=== PATIENT | male | born 1930 | race Caucasian/White ===

== ENCOUNTER 2017-12-14 15:50 | Inpatient (IN) | payer MEDICARE ==
[2017-12-14 16:55] LABS: Urine Appearance Clear; Urine Blood Negative (Negative); Urine Color Yellow; Urine Ketones Trace (Negative); Urine Protein Negative (Negative); Urine Specific Gravity 1.016 (1.010-1.030); Urine Urobilinogen Negative (Negative)
[2017-12-14 16:59] LABS: ABS Basophils 0.1 10^3/ul (0-0.2); ABS Eosinophils 0 10^3/ul (0-0.6); ABS Lymphocytes 1.5 10^3/ul (1.0-4.8); ABS Monocytes 0.9 10^3/ul (0-0.8); ABS Neutrophils 7.1 10^3/ul (1.5-7.7); ABS Nucleated RBC 0 10^3/ul; Eosinophil % 0.2 % (0-6); Hematocrit 48 % (42-52); Hemoglobin 16.4 g/dl (14.0-18.0); Lymphocyte % 15.5 % (25-47); Mean Corpuscular HGB Conc 34 g/dl (31-36); Mean Corpuscular Hemoglobin 29 pg (27-31); Mean Corpuscular Volume 86 fL (80-94); Mean Platelet Volume 7.8 um3 (7.4-10.4); Nucleated Red Blood Cells % 0.1; Platelet Count 175 10^3/ul (150-450); Red Blood Count 5.65 10^6/ul (4.00-5.40); Red Cell Distribution Width 15 % (10.5-15); White Blood Count 9.5 10^3/ul (3.5-10.8)
[2017-12-14 17:24] LABS: EGFR Non-African American 56.9 (>60)
--- NOTE | 2017-12-14 20:28 | ED ---
Psychiatric Complaint - HPI Summary HPI Summary: This is scribe Soham Yo documenting for attending Kim Lao MD. A 87 y/o male presents to ED c/o SI. As per triage, "Patient has SI, without HI. Stated that he wanted swallow pills, or jump out of the window". According to the patient, 29 years ago his and he suffered from depression and he checked himself into [facility] because he wanted help, and he was admitted for a few weeks. He noted that it was the bravest thing he has ever done. He stated that his MD, Dr. Pro, discovered a 2 x 2 x 3 mass in his neck. A biopsy was done which revealed that it is nothing he should worry about because it is not cancerous, but it did create worry for him. About 1 week ago, he started to experience depression again. He noted that is son is a half a block away and knows he is here. His ex lives in the same building as him. Patient did emphasize that he does have SI, but not a real plan. He stated he has several pills he could take, but he wouldn't do anything for his son's sake. He decided to come to ED on his own. He stated that he confessed what he was feeling this morning at [facility] at confession with a client resource specialist. Current medications include Paxil which he takes only occasionally and baby Aspirin, however, he is not sure about all medications. Pharmacy is [place] [facility] [address] He stated that he has not taken his Paxil for a long time, instead he takes it occassionally. FHx of no suicide or depression. Dr. Lao called [facility] on [address] in [place] and spoke with pharmacist, who stated that pt's only med filled is levothyroxine 50mcg daily which was filled in September 2017. Pt had prior prescriptions for paroxetine 20mg, 30mg po qd, last filled 11/02/16. Pt was also on glipizide ER 10mg qd, losartan/HCTZ 100/25 qd, and oxybutinin 5mg, all of which were last filled in February 2017. I, Dr. Kim Lao, personally performed the services described in this documentation as scribed in my presence and it is both accurate and complete. - History Of Current Complaint Chief Complaint: EDMentalHealth Time Seen by Provider: 12/14/17 16:22 Hx Obtained From: Patient, Other: - [facility] pharmacy Onset/Duration: Sudden Onset, Lasting Weeks, Still Present Timing: Constant Severity Initially: Moderate Severity Currently: Severe Character: Depressed Aggravating Factor(s): Nothing Alleviating Factor(s): Nothing Related History: Positive For: Prior Psychiatric Issues Has Suicidal: Reports: Thoughts. Denies: With A Plan Has Homicidal: Denies: Thoughts - Risk Factor(s) Completed Suicide Risk Factors: Male, White Fijian, , Living Alone - Allergies/Home Medications Allergies/Adverse Reactions: Allergies Allergy/AdvReac Type Severity Reaction Status Date / Time No Known Allergies Allergy Verified 09/17/17 12:43 PMH/Surg Hx/FS Hx/Imm Hx Previously Healthy: No - BPH Endocrine/Hematology History: Reports: Hx Diabetes, Hx Thyroid Disease Cardiovascular History: Reports: Hx Hypertension Respiratory History: Denies: Hx Asthma, Hx Chronic Obstructive Pulmonary Disease (COPD) GI History: Denies: Hx Ulcer History: Denies: Hx Dialysis, Hx Renal Disease Psychiatric History: Reports: Hx Depression Denies: Hx Eating Disorder, Hx of Violent Episodes Against Others - Cancer History Cancer Type, Location and Year: none - Surgical History Surgery Procedure, Year, and Place: left ankle,left knee,hernia,cspine laminectomy, Infectious Disease History: No Infectious Disease History: Denies: Hx Hepatitis, Hx Human Immunodeficiency Virus (HIV), Hx of Known/ Suspected MRSA, Hx Shingles, Hx Tuberculosis, Traveled Outside the [place] in Last 30 Days - Family History Known Family History: Positive: Other - NEGATIVE: Depression and SI - Social History Occupation: Retired Lives: Alone Alcohol Use: Occasionally Substance Use Type: Reports: None Smoking Status (MU): Never Smoked Tobacco Review of Systems Negative: Fever Cardiovascular: Negative Respiratory: Negative Gastrointestinal: Negative Positive: no symptoms reported Skin: Negative Neurological: Negative Psychological: Other - POSITIVE: SI All Other Systems Reviewed And Are Negative: Yes Physical Exam - Summary Physical Exam Summary: Appearance: Well-appearing, no pain distress, well-nourished Skin:Warm, color reflects adequate perfusion, dry Head:Normal Head/Face inspection, atraumatic Eyes: Conjunctiva clear ENT:Normal inspection Neck:Supple, no nodes, no JVD Respiratory: Lungs clear, normal breath sounds, no respiratory distress Cardio: irregular HR, controlled rate, No murmur, pulses normal, brisk capillary refill Abdomen: Soft, nontender Bowel sounds: Present Musculoskeletal: Strength Intact/ROM intact, no calf tenderness, no edema. Psychological: Depressed affect Neuro: Alert, muscle tone normal, no focal deficit Triage Information Reviewed: Yes Vital Signs On Initial Exam: Initial Vitals Temp Pulse Resp BP Pulse Ox 98.6 F 95 18 130/90 96 12/14/17 15:52 12/14/17 15:52 12/14/17 15:52 12/14/17 15:52 12/14/17 15:52 Vital Signs Reviewed: Yes Diagnostics - Vital Signs Vital Signs Temp Pulse Resp BP Pulse Ox 12/14/17 15:52 98.6 F 95 18 130/90 96 - Laboratory Lab Results: Lab Results 12/14/17 12/14/17 12/14/17 Range/Units 16:41 16:41 16:50 WBC 9.5 (3.5-10.8) 10^3/ul RBC 5.65 H (4.00-5.40) 10^6/ul Hgb 16.4 (14.0-18.0) g/dl Hct 48 (42-52) % MCV 86 (80-94) fL MCH 29 (27-31) pg MCHC 34 (31-36) g/dl RDW 15 (10.5-15) % Plt Count 175 (150-450) 10^3/ul MPV 7.8 (7.4-10.4) um3 Neut % (Auto) 74.3 (38-83) % Lymph % (Auto) 15.5 L (25-47) % Archer % (Auto) 9.3 H (0-7) % Eos % (Auto) 0.2 (0-6) % Baso % (Auto) 0.7 (0-2) % Absolute Neuts (auto) 7.1 (1.5-7.7) 10^3/ul Absolute Lymphs (auto) 1.5 (1.0-4.8) 10^3/ul Absolute Monos (auto) 0.9 H (0-0.8) 10^3/ul Absolute Eos (auto) 0 (0-0.6) 10^3/ul Absolute Basos (auto) 0.1 (0-0.2) 10^3/ul Absolute Nucleated RBC 0 10^3/ul Nucleated RBC % 0.1 Sodium (135-145) mmol/L Potassium (3.5-5.0) mmol/L Chloride (101-111) mmol/L Carbon Dioxide (22-32) mmol/L Anion Gap (2-11) mmol/L BUN (6-24) mg/dL Creatinine (0.67-1.17) mg/dL Est GFR ( Amer) (>60) Est GFR (Non-Af Amer) (>60) BUN/Creatinine Ratio (8-20) Glucose (70-100) mg/dL Calcium (8.6-10.3) mg/dL Total Bilirubin (0.2-1.0) mg/dL AST (13-39) U/L ALT (7-52) U/L Alkaline Phosphatase (34-104) U/L Total Protein (6.4-8.9) g/dL Albumin (3.2-5.2) g/dL Globulin (2-4) g/dL Albumin/Globulin Ratio (1-3) TSH (0.34-5.60) mcIU/mL Urine Color Yellow Urine Appearance Clear Urine pH 5.0 (5-9) Ur Specific Cody 1.016 (1.010-1.030) Urine Protein Negative (Negative) Urine Ketones Trace A (Negative) Urine Blood Negative (Negative) Urine Nitrate Negative (Negative) Urine Bilirubin Negative (Negative) Urine Urobilinogen Negative (Negative) Ur Leukocyte Esterase Negative (Negative) Urine Glucose Negative (Negative) Urine Ascorbic Acid * A (Negative) Salicylates (<30) mg/dL Urine Opiates Screen None detected (None Detect) Acetaminophen mcg/mL Ur Barbiturates Screen None detected (None Detect) Ur Phencyclidine Scrn None detected (None Detect) Ur Amphetamines Screen None detected (None Detect) U Benzodiazepines Scrn None detected (None Detect) Urine Cocaine Screen None detected (None Detect) U Cannabinoids Screen None detected (None Detect) Serum Alcohol (<10) mg/dL 12/14/17 Range/Units 16:50 WBC (3.5-10.8) 10^3/ul RBC (4.00-5.40) 10^6/ul Hgb (14.0-18.0) g/dl Hct (42-52) % MCV (80-94) fL MCH (27-31) pg MCHC (31-36) g/dl RDW (10.5-15) % Plt Count (150-450) 10^3/ul MPV (7.4-10.4) um3 Neut % (Auto) (38-83) % Lymph % (Auto) (25-47) % Archer % (Auto) (0-7) % Eos % (Auto) (0-6) % Baso % (Auto) (0-2) % Absolute Neuts (auto) (1.5-7.7) 10^3/ul Absolute Lymphs (auto) (1.0-4.8) 10^3/ul Absolute Monos (auto) (0-0.8) 10^3/ul Absolute Eos (auto) (0-0.6) 10^3/ul Absolute Basos (auto) (0-0.2) 10^3/ul Absolute Nucleated RBC 10^3/ul Nucleated RBC % Sodium 138 (135-145) mmol/L Potassium 3.9 (3.5-5.0) mmol/L Chloride 105 (101-111) mmol/L Carbon Dioxide 25 (22-32) mmol/L Anion Gap 8 (2-11) mmol/L BUN 21 (6-24) mg/dL Creatinine 1.21 H (0.67-1.17) mg/dL Est GFR ( Amer) 68.8 (>60) Est GFR (Non-Af Amer) 56.9 (>60) BUN/Creatinine Ratio 17.4 (8-20) Glucose 135 H (70-100) mg/dL Calcium 9.2 (8.6-10.3) mg/dL Total Bilirubin 0.80 (0.2-1.0) mg/dL AST 15 (13-39) U/L ALT 16 (7-52) U/L Alkaline Phosphatase 87 (34-104) U/L Total Protein 6.6 (6.4-8.9) g/dL Albumin 3.7 (3.2-5.2) g/dL Globulin 2.9 (2-4) g/dL Albumin/Globulin Ratio 1.3 (1-3) TSH 0.87 (0.34-5.60) mcIU/mL Urine Color Urine Appearance Urine pH (5-9) Ur Specific Cody (1.010-1.030) Urine Protein (Negative) Urine Ketones (Negative) Urine Blood (Negative) Urine Nitrate (Negative) Urine Bilirubin (Negative) Urine Urobilinogen (Negative) Ur Leukocyte Esterase (Negative) Urine Glucose (Negative) Urine Ascorbic Acid (Negative) Salicylates < 2.50 (<30) mg/dL Urine Opiates Screen (None Detect) Acetaminophen < 15 mcg/mL Ur Barbiturates Screen (None Detect) Ur Phencyclidine Scrn (None Detect) Ur Amphetamines Screen (None Detect) U Benzodiazepines Scrn (None Detect) Urine Cocaine Screen (None Detect) U Cannabinoids Screen (None Detect) Serum Alcohol < 10 (<10) mg/dL Result Diagrams: 12/14/17 16:50 12/14/17 16:50 Lab Statement: Any lab studies that have been ordered have been reviewed, and results considered in the medical decision making process. - EKG 1635 Cardiac Rate: NL - 90 BPM EKG Rhythm: Atrial Fibrillation ST Segment: Non-Specific Ectopy: PVCs - 2 PVC's EKG Interpretation: nl IV CT, nl QTc, axis 19, no acute changes EKG Comparison: Other - No prior EKG to compare. Course/Dx - Course Course Of Treatment: A 87 y/o male presents to ED c/o SI. An EKG revealed NSR of 90 BPM, atrial fibrillation, nl IV CT, nl QTc, axis 19, no acute changes and positive ectopy with 2 PVC's. No prior EKG's to compare. Pt is asymptomatic with this. [facility], [place] , [address]. Pt has been noncompliant with medications for DM, HTN and depression. It is believed that pt's depression and suicidal ideation with vague plan to take pills, although he does consider that he wouldn't do it because of his son, is more dangerous to the patient at this time than his atrial fibrillation that may be new because pt is totally asymptomatic and his rate is controlled, and pt would not be admitted to the hospital for his afib alone, so pt is medically cleared at 17:35pm. Pt care was discussed with Dr. Ibanez who advised that medical consult for stable, controlled rate, asymptomatic atrial fibrillation could take place in the am, 12/15/17. In the ED course, the patient recieved no medications. Patient medications were reviewed this visit, takes only levothyroxine 50 mcg daily and occasional paroxetine, last filled 11/02/16. Patient care was discussed with love Wilkins, RN, who advises patient admission, 9.39 status (emergency admit). Patient will be admitted with a diagnosis of A-fib and depression. Patient is agreeable with this plan. - Differential Dx/Clinical Impression Differential Diagnosis/HQI/PQRI: Positive: Depression, Suicidal Ideation, Other - atrial fibrillation Provider Diagnosis: Depression, Atrial fibrillation - Physician Notifications Discussed Care Of Patient With: Vikas Valenzuela Time Discussed With Above Provider: 21:36 Instructed by Provider To: Admit As Inpatient - Accepts for admission, per Kendra AGUILAR. Patient Is Medically Stable For: Psych Evaluation Discharge - Sign-Out/Discharge Documenting (check all that apply): Patient Departure - ADMIT - Discharge Plan Condition: Stable Disposition: PSYCHIATRIC FACILITY-[facility] – [place] Referrals: Serafin Shen MD [Primary Care Provider] - - Billing Disposition and Condition Condition: STABLE Disposition: Psychiatric Facility [facility] [place]
[2017-12-14] MEDS ORDERED: Al Hydrox/Mg Hydrox/Simet LIQ* 30 ML UDC PO PRN (23:40)
--- NOTE | 2017-12-15 00:09 | CONSULT ---
Consult Consult: Consulted by ED MD for AFIB on ECG. Upon review of the ECG autoread claims AFIB , the ECG is actually NSR rate 90 with occasional PVCs, no ischemia. Chart review reveals no HX AFIB. As such, I will sign off. Patient not seen or evaluated. Please re-consult for any concerns.
[2017-12-15] MEDS: Levothyroxine TAB* 50 MCG TAB PO SCH (09:20)
[2017-12-15] MEDS: Vitamin THERAPEUTIC TAB PO SCH (09:20)
[2017-12-15] MEDS ORDERED: Mirtazapine TAB* 15 MG PO PRN (15:38)
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
[2017-12-15] MEDS: Mirtazapine TAB* 15 MG PO SCH (20:28)
[2017-12-16] MEDS: Vitamin THERAPEUTIC TAB PO SCH (09:34)
[2017-12-16] MEDS: Levothyroxine TAB* 50 MCG TAB PO SCH (09:34)
[2017-12-16] MEDS: Acetaminophen TAB* 325 MG PO PRN (10:30)
--- NOTE | 2017-12-16 12:48 | PN ---
Subjective - Subjective Date of Service: 12/16/17 Service Type: 28715 Hosp care 15 min low complexity Subjective: Patient was seen by self, discussed with treatment team, chart was reviewed. Patient has been compliant with his medications, no reported side effects. Patient reports continued feeling of depression and low energy, passive suicidal thoughts. Patient reported having headache and stiff neck this morning from a particular posture during sleep. Patient reported having that in the past as well and requested for pain medication. Patient sleeping has been disturbed last night. Patient eating has been ok. Patient was Patient continues to struggle with his memory of recent event and could not recall information from out meeting yesterday. Patient is cooperative with staff. Patient behavior has been in control. Patient mood was anxious and dysphoric with racing thoughts. Patient has passive suicidal ideation but no homicidal ideation. No psychotic symptoms of delusions or hallucinations. Objective - Appearance Appearance: Healthy Appearing Dysmorphic Features: No Hygiene: Normal Grooming: Disheveled - Behavior Psychomotor Activities: Abnormal-Decreased - Attitude and Relatedness Attitude and Relatedness: Cooperative Eye Contact: Fair - Speech Quality: Unpressured Latencies: Normal Quantity: Terse - Mood Patient's Decription of Mood: "i dont want to feel like this" - Affect Observed Affect: Depressed Affect Consistent with: Dysphoria - Thought Process Patient's Thought Process: Goal Directed Thought Content: Yes Passive Wish - but feel safe at the hospital, will report staff if any worsening of sucidial thougths, No Suicidal Planning, No Homicidal Ideation, No Paranoid Ideation - Sensorium Experiencing Hallucinations: No, Sensorium is Clear Type of Hallucinations: Visual: No, Auditory: No, Command: No - Level of Consciousness Level of Consciousness: Alert Orientation: Yes Intact, Yes Orientated to Time, Yes Orientated to Place, Yes Orientated to Person - Impulse Control Impulse Control: Intact - Insight and Judgement Insight and Judgement: Fair - Medication Management Medication Management Adherence: Yes Assessment - Assessment Merits Inpatient Hospitalization: For Immediate Safety, For Stabilization, For Discharge Planning Inpatient DSM-V Dx: F33.9 Clinical Impression: Patient with history of majore depression and suicidal thoughts. Patient currently admitted due to worsening of depression, non compliance, not caring for self and suicidal thoughts with plan to overdose. Patient has also been struggling with his memory and also apprehensive about lesion around sternal area that was biopsied. Patient is a danger to self if discharged hence medications are being adjusted and symptoms will be stabilized on inpatient. Plan - Plan Treatment Plan: Name: JANELLE SARABIA Birthdate: 1930 [id number] - Patient continues to be hospitalized due to depression recent suicidal thoughts with plan, not caring for himself and anxiety. - Patient's medications were continued after informed consent with Remeron 7.5 mg for depression and sleep. - Patient will be continued with levothyroxine, will follow up with hospitalist tomorrow with another set of vital. Continue with finger stick daily. - Patient will be monitored for improvement and side effects. Risk and benefits were discussed. - Patient was encouraged to continue his participation in the milieu, group and individual therapy. Medications: Current Medications Acetaminophen (Tylenol Tab*) 650 mg PO Q4H PRN PRN Reason: PAIN or TEMP > 101 F Last Admin: 12/16/17 10:30 Dose: 650 mg Al Hydrox/Mg Hydrox/Simethicone (Maalox Plus*) 30 ml PO Q4H PRN PRN Reason: INDIGESTION Levothyroxine Sodium (Synthroid Tab*) 50 mcg PO 0600 DOMINIC Last Admin: 12/16/17 09:34 Dose: 50 mcg Mirtazapine (Remeron Tab*) 7.5 mg PO BEDTIME DOMINIC Last Admin: 12/15/17 20:28 Dose: 7.5 mg Multivitamins (Theragran Tab*) 1 tab PO DAILY DOMINIC Last Admin: 12/16/17 09:34 Dose: 1 tab
[2017-12-16] MEDS: Folic Acid TAB* 1 MG PO SCH (14:08)
--- NOTE | 2017-12-16 16:22 | PN ---
[facility]: Group Therapy Note - Service Type Service Type: [id number] Group Psychotherapy - Medication Education Group: Patient was attentive and participatory in group, and remained in good behavioral control. Patient expressed positive insights regarding relevant treatment interventions. Patient stated understanding of material discussed and had appropriate questions.
[2017-12-16] MEDS: Mirtazapine TAB* 15 MG PO SCH (20:21)
[2017-12-17] MEDS: Vitamin THERAPEUTIC TAB PO SCH (10:08)
[2017-12-17] MEDS: Folic Acid TAB* 1 MG PO SCH (10:08)
[2017-12-17] MEDS: Levothyroxine TAB* 50 MCG TAB PO SCH (10:08)
[2017-12-17] MEDS: Acetaminophen TAB* 325 MG PO PRN (10:08)
--- NOTE | 2017-12-17 14:35 | PN ---
Subjective - Subjective Date of Service: 12/17/17 Service Type: 38709 Hosp care 15 min low complexity Subjective: Patient was seen by self, discussed with treatment team, chart was reviewed. Patient has been compliant with his medications, reports some pressure in stomach but no nausea and vomiting. Patient was in pain with headached during the monring but as the day progress was better. Patient reports continued feeling of depression and low energy, passive suicidal thoughts. Patient reported having headache which gets better later during the day. Patient reported that it get resolved with tylenol and requested for one this morning. Patient sleeping has been better last night. Patient eating has been ok. Patient continues to struggle with his memory and concentration difficulty. Patient is cooperative with staff. Patient behavior has been in control. Patient mood was anxious and dysphoric with racing thoughts. Patient has passive suicidal ideation but no homicidal ideation. No psychotic symptoms of delusions or hallucinations. Objective - Appearance Appearance: Healthy Appearing Dysmorphic Features: No Grooming: Disheveled - Behavior Psychomotor Activities: Abnormal-Decreased Exhibits Abnormal Movement: No - Attitude and Relatedness Attitude and Relatedness: Cooperative Eye Contact: Fair - Speech Quality: Unpressured Latencies: Normal Quantity: Terse - Mood Patient's Decription of Mood: "Terrible" - Affect Observed Affect: Depressed Affect Consistent with: Dysphoria - Thought Process Patient's Thought Process: Goal Directed Thought Content: Yes Passive Wish, No Suicidal Planning, No Homicidal Ideation, No Paranoid Ideation - Sensorium Experiencing Hallucinations: No, Sensorium is Clear Type of Hallucinations: Visual: No, Auditory: No, Command: No - Level of Consciousness Level of Consciousness: Alert Orientation: Yes Intact, Yes Orientated to Time, Yes Orientated to Place, Yes Orientated to Person - Impulse Control Impulse Control: Intact - Insight and Judgement Insight and Judgement: Fair - Group Participation Particating in Group Activities: Yes Assessment - Assessment Merits Inpatient Hospitalization: For Immediate Safety, For Stabilization, For Discharge Planning Inpatient DSM-V Dx: F33.9 Clinical Impression: Patient with history of majore depression and suicidal thoughts. Patient currently admitted due to worsening of depression, non compliance, not caring for self and suicidal thoughts with plan to overdose. Patient has also been struggling with his memory and also apprehensive about lesion around sternal area that was biopsied. Patient is a danger to self if discharged hence medications are being adjusted and symptoms will be stabilized on inpatient. Plan - Plan Treatment Plan: Name: JANELLE SARABIA Birthdate: 1930 [id number] - Patient continues to be hospitalized due to depression recent suicidal thoughts with plan, not caring for himself and anxiety. - Patient's medications were continued after informed consent with Remeron 7.5 mg for depression and sleep. Will continue with Q15 minutes. - Patient will be continued with levothyroxine, will follow up with vital signs , as B.P has been in 130's. Continue with finger stick daily. - Patient will be monitored for improvement and side effects. Risk and benefits were discussed. - Patient was encouraged to continue his participation in the milieu, group and individual therapy. Medications: Current Medications Acetaminophen (Tylenol Tab*) 650 mg PO Q4H PRN PRN Reason: PAIN or TEMP > 101 F Last Admin: 12/17/17 10:08 Dose: 650 mg Al Hydrox/Mg Hydrox/Simethicone (Maalox Plus*) 30 ml PO Q4H PRN PRN Reason: INDIGESTION Folic Acid (Folvite Tab*) 1 mg PO DAILY [facility] Last Admin: 12/17/17 10:08 Dose: 1 mg Levothyroxine Sodium (Synthroid Tab*) 50 mcg PO 0600 [facility] Last Admin: 12/17/17 10:08 Dose: 50 mcg Mirtazapine (Remeron Tab*) 7.5 mg PO BEDTIME [facility] Last Admin: 12/16/17 20:21 Dose: 7.5 mg Multivitamins (Theragran Tab*) 1 tab PO DAILY [facility] Last Admin: 12/17/17 10:08 Dose: 1 tab
[2017-12-17] MEDS: Mirtazapine TAB* 15 MG PO SCH (20:29)
[2017-12-18] MEDS: Acetaminophen TAB* 325 MG PO PRN (09:21)
[2017-12-18] MEDS: Folic Acid TAB* 1 MG PO SCH (09:21)
[2017-12-18] MEDS: Levothyroxine TAB* 50 MCG TAB PO SCH (09:21)
[2017-12-18] MEDS: Vitamin THERAPEUTIC TAB PO SCH (09:21)
--- NOTE | 2017-12-18 20:00 | PN ---
Subjective - Subjective Date of Service: 12/18/17 Service Type: 36694 Hosp care 15 min low complexity Subjective: Mr. Erickson appeared to be happily interacting with nursing staff and reported that he had a better day today with good mood and no physical issues. Unsure about suicidal thoughts as that comes and goes. Takes his meds as prescribed, wonders around on the unit and responds to staffs pleasantly. Objective - Appearance Appearance: Healthy Appearing Dysmorphic Features: No Hygiene: Normal Grooming: Well Kept - Behavior Psychomotor Activities: Normal Exhibits Abnormal Movement: No - Attitude and Relatedness Attitude and Relatedness: Appropriate Eye Contact: Good - Speech Quality: Unpressured Latencies: Normal Quantity: Appropriate - Mood Patient's Decription of Mood: "Fine" - Affect Observed Affect: Non-labile Affect Consistent with: Euthymia - Thought Process Patient's Thought Process: Coherent, Circumstantial Thought Content: No Passive Wish, No Suicidal Planning, No Homicidal Ideation, No Paranoid Ideation - Sensorium Experiencing Hallucinations: No, Sensorium is Clear Type of Hallucinations: Visual: No, Auditory: No, Command: No - Level of Consciousness Level of Consciousness: Alert Orientation: Yes Orientated to Place, Yes Orientated to Person, No Orientated to Time - Impulse Control Impulse Control: Intact - Insight and Judgement Insight and Judgement: Poor - Group Participation Particating in Group Activities: Yes - Medication Management Medication Management Adherence: Yes Assessment - Assessment Merits Inpatient Hospitalization: For Immediate Safety, For Stabilization, Pending Safe DC Plan Inpatient DSM-V Dx: F33.9 Clinical Impression: Unreliable in reporting but pleasant and cooperative. Plan - Plan Treatment Plan: Name: JANELLE ERICKSON Birthdate: 1930 [id number] Continued Medication Management: Continue Outpt Medication Medications: Current Medications Acetaminophen (Tylenol Tab*) 650 mg PO Q4H PRN PRN Reason: PAIN or TEMP > 101 F Last Admin: 12/18/17 09:21 Dose: 650 mg Al Hydrox/Mg Hydrox/Simethicone (Maalox Plus*) 30 ml PO Q4H PRN PRN Reason: INDIGESTION Folic Acid (Folvite Tab*) 1 mg PO DAILY [facility] Last Admin: 12/18/17 09:21 Dose: 1 mg Levothyroxine Sodium (Synthroid Tab*) 50 mcg PO 0600 [facility] Last Admin: 12/18/17 09:21 Dose: 50 mcg Mirtazapine (Remeron Tab*) 7.5 mg PO BEDTIME [facility] Last Admin: 12/17/17 20:29 Dose: 7.5 mg Multivitamins (Theragran Tab*) 1 tab PO DAILY [facility] Last Admin: 12/18/17 09:21 Dose: 1 tab - Discharge Plan Discharge Plan: Outpatient Follow Up Outpatient Program: [facility]
[2017-12-18] MEDS: Mirtazapine TAB* 15 MG PO SCH (20:15)
[2017-12-19] MEDS: Acetaminophen TAB* 325 MG PO PRN (08:39)
[2017-12-19] MEDS: Levothyroxine TAB* 50 MCG TAB PO SCH (08:40)
[2017-12-19] MEDS: Vitamin THERAPEUTIC TAB PO SCH (08:40)
[2017-12-19] MEDS: Folic Acid TAB* 1 MG PO SCH (08:40)
[2017-12-19] MEDS: Mirtazapine TAB* 15 MG PO SCH (20:41)
[2017-12-20] MEDS: Folic Acid TAB* 1 MG PO SCH (07:38)
[2017-12-20] MEDS: Levothyroxine TAB* 50 MCG TAB PO SCH (07:38)
[2017-12-20] MEDS: Vitamin THERAPEUTIC TAB PO SCH (07:38)
--- NOTE | 2017-12-20 11:31 | PN ---
Subjective - Subjective Date of Service: 12/20/17 Service Type: [id number] Hosp care 15 min low complexity Subjective: Patient was seen by self, discussed with treatment team, chart was reviewed. Patient has been compliant with his medications, reports improvement in pressure in stomach and loose bowel movements, no nausea and vomiting. Patient did not report any headache today and was seen in his room. Patient reports continued feelings of depression with minimal improvement, reduction in frequency and intensity of passive suicidal thoughts. Patient sleeping has been better last night. Patient eating has been ok. Patient continues to struggle with his memory and concentration difficulty. Patient is cooperative with staff. Patient behavior has been in control. Patient mood was less anxious and dysphoric with less racing thoughts. Patient has no homicidal ideation. No psychotic symptoms of delusions or hallucinations. Objective - Appearance Appearance: Healthy Appearing Dysmorphic Features: No Hygiene: Mal-odorous Grooming: Fairly Well Kept - Behavior Psychomotor Activities: Abnormal-Decreased Exhibits Abnormal Movement: No - Attitude and Relatedness Attitude and Relatedness: Superficially Cooperative Eye Contact: Fair - Speech Quality: Unpressured Latencies: Normal Quantity: Terse - Mood Patient's Decription of Mood: "not good" - Affect Observed Affect: Depressed Affect Consistent with: Dysphoria - Thought Process Patient's Thought Process: Goal Directed Thought Content: No Passive Wish - not at the time of evaluation, No Suicidal Planning, No Homicidal Ideation, No Paranoid Ideation - Sensorium Experiencing Hallucinations: No, Sensorium is Clear Type of Hallucinations: Visual: No, Auditory: No, Command: No - Level of Consciousness Level of Consciousness: Alert Orientation: Yes Intact, Yes Orientated to Time, Yes Orientated to Place, Yes Orientated to Person - Impulse Control Impulse Control: Intact - Insight and Judgement Insight and Judgement: Poor - as per recent non compliance but improving - Medication Management Medication Management Adherence: Yes Assessment - Assessment Merits Inpatient Hospitalization: For Immediate Safety, For Stabilization, For Discharge Planning Inpatient DSM-V Dx: F33.9 Clinical Impression: Patient with history of majore depression and suicidal thoughts. Patient currently admitted due to worsening of depression, non compliance, not caring for self and suicidal thoughts with plan to overdose. Patient has also been struggling with his memory and also apprehensive about lesion around sternal area that was biopsied. Patient is a danger to self if discharged hence medications are being adjusted and symptoms will be stabilized on inpatient. Plan - Plan Treatment Plan: Name: JANELLE SARABIA Birthdate: 1930 [id number] - Patient continues to be hospitalized due to depression recent suicidal thoughts with plan, not caring for himself and anxiety. - Patient's medications were continued after informed consent with Remeron 7.5 mg for depression and sleep. Patient currently tolerating it better and improving with GI side effects. Will continue with Q15 minutes. - Patient will be continued with levothyroxine, patient's B.P has been in 130' s. Continue with finger stick daily. - Patient will be monitored for improvement and side effects. Risk and benefits were discussed. - Patient was encouraged to continue his participation in the milieu, group and individual therapy. Medications: Current Medications Acetaminophen (Tylenol Tab*) 650 mg PO Q4H PRN PRN Reason: PAIN or TEMP > 101 F Last Admin: 12/19/17 08:39 Dose: 650 mg Al Hydrox/Mg Hydrox/Simethicone (Maalox Plus*) 30 ml PO Q4H PRN PRN Reason: INDIGESTION Folic Acid (Folvite Tab*) 1 mg PO DAILY [facility] Last Admin: 12/20/17 07:38 Dose: 1 mg Levothyroxine Sodium (Synthroid Tab*) 50 mcg PO 0600 [facility] Last Admin: 12/20/17 07:38 Dose: 50 mcg Mirtazapine (Remeron Tab*) 7.5 mg PO BEDTIME [facility] Last Admin: 12/19/17 20:41 Dose: 7.5 mg Multivitamins (Theragran Tab*) 1 tab PO DAILY [facility] Last Admin: 12/20/17 07:38 Dose: 1 tab
[2017-12-20] MEDS: Mirtazapine TAB* 15 MG PO SCH (20:19)
[2017-12-21] MEDS: Vitamin THERAPEUTIC TAB PO SCH (09:08)
[2017-12-21] MEDS: Levothyroxine TAB* 50 MCG TAB PO SCH (09:08)
[2017-12-21] MEDS: Folic Acid TAB* 1 MG PO SCH (09:08)
--- NOTE | 2017-12-21 10:25 | PN ---
Subjective - Subjective Date of Service: 12/21/17 Service Type: [id number] Hosp care 15 min low complexity Subjective: Patient was seen by self, discussed with treatment team, chart was reviewed. Patient has been compliant with his medications, reports progressing towards resolution towards GI related side effects. Patient did not report any headache today and was seen in his room. Patient room is usually disorganized and cluttered with clothes and other belongings. Patient was encouraged to be working on his skills as he is improving through depression and anxiety to help him feel much better. Patient reports some improvement in feelings of depression , no suicidal thoughts. Patient sleeping was interrupted last night. Patient eating has been ok. Patient continues to struggle with his memory but showing some improvement in concentration. Patient is cooperative with staff. Patient behavior has been in control. Patient mood was less anxious and less dysphoric with improvement in racing thoughts and suicidal thoughts. Patient has no homicidal ideation. No psychotic symptoms of delusions or hallucinations. Objective - Appearance Appearance: Healthy Appearing Dysmorphic Features: No Grooming: Disheveled - Behavior Psychomotor Activities: Normal Exhibits Abnormal Movement: No - Attitude and Relatedness Attitude and Relatedness: Cooperative Eye Contact: Fair - Speech Quality: Unpressured Latencies: Normal Quantity: Appropriate - Mood Patient's Decription of Mood: "Okay" - Affect Observed Affect: Constricted Affect Consistent with: Dysphoria - Thought Process Patient's Thought Process: Coherent, Goal Directed Thought Content: No Passive Wish, No Suicidal Planning, No Homicidal Ideation, No Paranoid Ideation - Sensorium Experiencing Hallucinations: No, Sensorium is Clear Type of Hallucinations: Visual: No, Auditory: No, Command: No - Level of Consciousness Level of Consciousness: Alert Orientation: Yes Intact, Yes Orientated to Time, Yes Orientated to Place, Yes Orientated to Person - Impulse Control Impulse Control: Intact - Insight and Judgement Insight and Judgement: Fair - Group Participation Particating in Group Activities: Yes - Medication Management Medication Management Adherence: Yes Assessment - Assessment Merits Inpatient Hospitalization: For Immediate Safety, For Stabilization, For Discharge Planning Inpatient DSM-V Dx: F33.9 Clinical Impression: Patient with history of majore depression and suicidal thoughts. Patient currently admitted due to worsening of depression, non compliance, not caring for self and suicidal thoughts with plan to overdose. Patient has also been struggling with his memory and also apprehensive about lesion around sternal area that was biopsied. Patient is a danger to self if discharged hence medications are being adjusted and symptoms will be stabilized on inpatient. Plan - Plan Treatment Plan: Name: JANELLE SARABIA Birthdate: 1930 [id number] - Patient continues to be hospitalized due to depression recent suicidal thoughts with plan, not caring for himself and anxiety. - Patient's medications were continued after informed consent with Remeron 7.5 mg for depression and sleep. Patient currently tolerating it better and improving with GI side effects, will increase Remeron as needed. Will reduce observation level to Q30 minutes with staff pass. - Patient will be continued with levothyroxine, patient's B.P has been in 130' s. Continue with finger stick daily. - Patient will be monitored for improvement and side effects. Risk and benefits were discussed. - Patient was encouraged to continue his participation in the milieu, group and individual therapy. Medications: Current Medications Acetaminophen (Tylenol Tab*) 650 mg PO Q4H PRN PRN Reason: PAIN or TEMP > 101 F Last Admin: 12/19/17 08:39 Dose: 650 mg Al Hydrox/Mg Hydrox/Simethicone (Maalox Plus*) 30 ml PO Q4H PRN PRN Reason: INDIGESTION Folic Acid (Folvite Tab*) 1 mg PO DAILY [facility] Last Admin: 12/21/17 09:08 Dose: 1 mg Levothyroxine Sodium (Synthroid Tab*) 50 mcg PO 0600 [facility] Last Admin: 12/21/17 09:08 Dose: 50 mcg Mirtazapine (Remeron Tab*) 7.5 mg PO BEDTIME [facility] Last Admin: 12/20/17 20:19 Dose: 7.5 mg Multivitamins (Theragran Tab*) 1 tab PO DAILY [facility] Last Admin: 12/21/17 09:08 Dose: 1 tab
[2017-12-21] MEDS: Mirtazapine TAB* 15 MG PO SCH (20:25)
[2017-12-22] MEDS: Levothyroxine TAB* 50 MCG TAB PO SCH (09:17)
[2017-12-22] MEDS: Folic Acid TAB* 1 MG PO SCH (09:17)
[2017-12-22] MEDS: Vitamin THERAPEUTIC TAB PO SCH (09:17)
--- NOTE | 2017-12-22 10:55 | PN ---
Subjective - Subjective Date of Service: 12/22/17 Service Type: 24132 Hosp care 15 min low complexity Subjective: Patient was seen by self, discussed with treatment team, chart was reviewed. Patient has been compliant with his medications, reports resolution of GI complaints. Patient did not report any headache today and was seen in the milieu. Patient was not consistent with groups yesterday and was encouraged to work with group on his skills as he is improving through depression and anxiety to help him feel much better. Patient reports continued improvement in feelings of depression, no suicidal thoughts, is able to concentrate better and reading a book on the unit. Patient sleeping was much better last night. Patient eating has been ok. Patient having . Patient is cooperative with staff. Patient behavior has been in control and used his staff pass appropriately. Patient mood was less anxious and less dysphoric with improvement in racing thoughts and suicidal thoughts. Patient has no homicidal ideation. No psychotic symptoms of delusions or hallucinations. Objective - Appearance Appearance: Healthy Appearing Dysmorphic Features: No Hygiene: Normal Grooming: Fairly Well Kept - Behavior Psychomotor Activities: Normal Exhibits Abnormal Movement: No - Attitude and Relatedness Attitude and Relatedness: Cooperative Eye Contact: Fair - Speech Quality: Unpressured Latencies: Normal Quantity: Appropriate - Mood Patient's Decription of Mood: "Anxious" - Affect Observed Affect: Depressed - less Affect Consistent with: Dysphoria - but improving - Thought Process Patient's Thought Process: Coherent Thought Content: No Passive Wish, No Suicidal Planning, No Homicidal Ideation, No Paranoid Ideation - Sensorium Experiencing Hallucinations: No, Sensorium is Clear Type of Hallucinations: Visual: No, Auditory: No, Command: No - Level of Consciousness Orientation: Yes Intact, Yes Orientated to Time, Yes Orientated to Place - Insight and Judgement Insight and Judgement: Fair - Medication Management Medication Management Adherence: Yes Assessment - Assessment Merits Inpatient Hospitalization: For Immediate Safety, For Stabilization, For Discharge Planning Inpatient DSM-V Dx: F33.9 Clinical Impression: Patient with history of majore depression and suicidal thoughts. Patient currently admitted due to worsening of depression, non compliance, not caring for self and suicidal thoughts with plan to overdose. Patient has also been struggling with his memory and also apprehensive about lesion around sternal area that was biopsied. Patient is a danger to self if discharged hence medications are being adjusted and symptoms will be stabilized on inpatient. Plan - Plan Treatment Plan: Name: JANELLE SARABIA Birthdate: 1930 [id number] - Patient continues to be hospitalized due to depression recent suicidal thoughts with plan, not caring for himself and anxiety. - Patient's medications were continued after informed consent with Remeron 15 mg at bedtime for depression and sleep. Patient currently tolerating it better and reports resolution of GI side effects. Will continue with Q30 minutes with staff pass. - Patient will be continued with levothyroxine, Called hospitalist control systems developer and recommended to have patient f/u with his primary care upon discharge and no recommendation at this to to start any treatment from B.P or B.G. - Patient will be monitored for improvement and side effects. Risk and benefits were discussed. - Patient was encouraged to continue his participation in the milieu, group and individual therapy. Medications: Current Medications Acetaminophen (Tylenol Tab*) 650 mg PO Q4H PRN PRN Reason: PAIN or TEMP > 101 F Last Admin: 12/19/17 08:39 Dose: 650 mg Al Hydrox/Mg Hydrox/Simethicone (Maalox Plus*) 30 ml PO Q4H PRN PRN Reason: INDIGESTION Folic Acid (Folvite Tab*) 1 mg PO DAILY [facility] Last Admin: 12/22/17 09:17 Dose: 1 mg Levothyroxine Sodium (Synthroid Tab*) 50 mcg PO 0600 [facility] Last Admin: 12/22/17 09:17 Dose: 50 mcg Mirtazapine (Remeron Tab*) 15 mg PO BEDTIME [facility] Last Admin: 12/21/17 20:25 Dose: 15 mg Multivitamins (Theragran Tab*) 1 tab PO DAILY [facility] Last Admin: 12/22/17 09:17 Dose: 1 tab
[2017-12-22] MEDS: Mirtazapine TAB* 15 MG PO SCH (20:16)
[2017-12-23 07:58] VITALS: BP 152/91
[2017-12-23] MEDS: Vitamin THERAPEUTIC TAB PO SCH (08:39)
[2017-12-23] MEDS: Folic Acid TAB* 1 MG PO SCH (08:39)
[2017-12-23] MEDS: Levothyroxine TAB* 50 MCG TAB PO SCH (08:39)
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
== END 2017-12-23 13:34 | disposition home or self-care (01) | DRG 885 ==
LOC: ED 15:50 → BSU 22:25
PROVIDERS: ADMIT Psychiatry & Neurology Psychiatry; ATTEND Psychiatry & Neurology Psychiatry
PROC: GZHZZZZ Group Psychotherapy (ICD-10-PCS; principal; 2017-12-16)
DX: F33.2 Major depressive disorder, recurrent severe without psychotic features (principal); R45.851 Suicidal ideations; I10 Essential (primary) hypertension; E03.9 Hypothyroidism, unspecified; F41.9 Anxiety disorder, unspecified; I49.3 Ventricular premature depolarization; Z91.14 Patient's other noncompliance with medication regimen; Z72.89 Other problems related to lifestyle; Z81.8 Family history of other mental and behavioral disorders; Z81.4 Family history of other substance abuse and dependence
CPT/HCPCS: 36415; 80053; 80061; 80307; 80320; 80329; 81003; 83036; 84443; 85025; 90853; 93005; 99222; 99231; 99238; 99284; A9270-GY; G0480; G8987-GO-CI; G8988-GO-CI; G8989-GO-CI